=== PATIENT | female | born 1970 | race Caucasian/White ===

== ENCOUNTER → 2019-11-01 08:58 | Outpatient (BNVA) | payer OTHER, SELFPAY | PROVIDERS: Family Provider Nurse Practitioner; Visit Provider Nurse Practitioner | DX: Z12.4 Encounter for screening for malignant neoplasm of cervix (principal); Z00.00 Encounter for general adult medical examination without abnormal findings | CPT/HCPCS: 80053; 80061; 84443 ==

== ENCOUNTER → 2019-11-23 16:24 | Outpatient (BNVA) | payer OTHER, SELFPAY | PROVIDERS: Family Provider Nurse Practitioner; Visit Provider Nurse Practitioner | DX: R05 Cough (principal) | CPT/HCPCS: 71046; 85025; 87400 ==

== ENCOUNTER → 2020-08-29 18:41 | Outpatient (BNVA) | payer OTHER, SELFPAY | PROVIDERS: PCP Nurse Practitioner; Visit Provider Family Medicine | DX: Z20.828 Contact with and (suspected) exposure to other viral communicable diseases (principal) | CPT/HCPCS: 87635 ==

== ENCOUNTER 2020-09-03 09:56 | Outpatient (CLI) | payer OTHER, SELFPAY ==
--- NOTE | 2020-09-03 10:30 | PFTS_ITS ---
Date of Study:09/03/20 Date of Dictation: MECHANICS: Forced vital capacity (FVC) is normal. Forced expiratory volume in one second (FEV1) is normal. FEV1/FVC is normal. FLOW VOLUME LOOP: Mild scooping. LUNG VOLUMES: Total lung capacity (TLC) is normal. Residual volume (RV) is normal. DIFFUSING CAPACITY FOR CARBON MONOXIDE: Normal. INTERPRETATION: The pulmonary function tests are normal. MTDD
--- NOTE | 2020-09-03 13:35 | PFTS_ITS ---
Date of Study:[id number] Date of Dictation: MECHANICS: Forced vital capacity (FVC) is . Forced expiratory volume in one second (FEV1) is . FEV1/FVC is . FLOW VOLUME LOOP: . LUNG VOLUMES: Total lung capacity (TLC) is . Residual volume (RV) is . DIFFUSING CAPACITY FOR CARBON MONOXIDE: . INTERPRETATION: The pulmonary function tests are . mechanics and lung volumes. Gas exchange (DLCO) is . MTDD
== END 2020-09-03 09:57 | disposition home or self-care (01) ==
LOC: RT 10:01
PROVIDERS: PCP Nurse Practitioner; Visit Provider Family Medicine
DX: Z87.09 Personal history of other diseases of the respiratory system (principal)
CPT/HCPCS: 94010; 94726; 94729

== ENCOUNTER 2020-10-08 16:49 | Outpatient (CLI) | payer OTHER, SELFPAY ==
--- NOTE | 2020-10-08 17:02 | XRR_ITS ---
PROCEDURE INFORMATION: Exam: XR Right Shoulder Exam date and time: 10/08/2020 5:03 PM Age: 50 years old Clinical indication: Pain; Shoulder; Right; Additional info: Right shoulder pain shoots to wrist TECHNIQUE: Imaging protocol: XR Right shoulder. Views: 2 or more views. COMPARISON: No relevant prior studies available. FINDINGS: Bones/joints: No acute fracture. No dislocation. Soft tissues: No radiopaque foreign body. XR/XR shoulder RT min 2V* [id number] IMPRESSION: No acute findings.
== END 2020-10-08 16:50 | disposition home or self-care (01) ==
PROVIDERS: PCP Electrodiagnostic Medicine; Visit Provider Electrodiagnostic Medicine
DX: M25.511 Pain in right shoulder (principal)
CPT/HCPCS: 73030

== ENCOUNTER 2020-11-02 07:49 | Outpatient (CLI) | payer OTHER, SELFPAY ==
--- NOTE | 2020-11-02 08:17 | XR_ITS ---
WS: [id number] CHEST 2 VIEWS HISTORY: COUGH, CHRONIC BRONCHITIS COMPARISON: 11/23/2019 Lungs: Linear area of thickening and increased opacification in the RIGHT lower lobe. This may be a d istended bronchus with mucous or focal bronchitis. The remaining lungs are clear. No effusion. Cardiac size: Normal. Mediastinum/Aorta: Normal mediastinum. Bones: Normal. XR/XR chest 2V* [id number] IMPRESSION: 1. Linear area of increasing opacification at the RIGHT lung base. May be an a govind of bronchial distention with mucus impaction. Consider follow-up chest radi ograph after 2-3 weeks to be sure this area resolves. 2. No pneumonia.
== END 2020-11-02 07:50 | disposition home or self-care (01) ==
PROVIDERS: PCP Electrodiagnostic Medicine; Visit Provider Electrodiagnostic Medicine
DX: J42 Unspecified chronic bronchitis (principal); J37.0 Chronic laryngitis; R05 Cough
CPT/HCPCS: 71046

== ENCOUNTER 2020-11-21 12:57 | Outpatient (CLI) | payer OTHER, SELFPAY ==
--- NOTE | 2020-11-21 13:00 | CT_ITS ---
WS: [id number] CT scan of the chest without IV contrast, additional two-dimensional coronal and sagittal reconstruct ion was performed. 11/21/2020 Clinical Data: CHRONIC BRONCHITIS LARYNGITIS, CHRONIC COUGH Comparison: PA and lateral chest, 11/02/2017. DLP: 635.[address] scans at [facility] use at least one of these dose optimization techniques: automat ed exposure control; mA and/or kV adjustment per patient size (includes targeted exams where dose is matched to clinical indication); or iterative reconstruction. Findings: There is a right middle lobe 0.6 cm nodule seen best on image 36 of 59. There is a groundgl ass nodule measuring 0.6 cm seen best on image 30 of 59 in the lateral aspect of the right middle lob e. No masses or effusions are seen. No pneumonia or pneumothorax is present. The heart size is normal with no pericardial effusion. The pulmonary arterial system and thoracic aorta demonstrate no abnorm alities or dilatations. There is no axillary or significant mediastinal adenopathy. The upper abdomen demonstrates no abnormalities. The bones of the thorax are unremarkable. CT/CT chest con [id number] Impression: 1. 2 nodules in the right middle lobe both measuring 0.6 cm. 2. Recommend repeat CT chest in 90 days.
== END 2020-11-21 12:58 | disposition home or self-care (01) ==
LOC: RADWPI 12:58
PROVIDERS: PCP Electrodiagnostic Medicine; Visit Provider Electrodiagnostic Medicine
DX: J42 Unspecified chronic bronchitis (principal); J37.0 Chronic laryngitis; R05 Cough; R91.8 Other nonspecific abnormal finding of lung field
CPT/HCPCS: 71250

== ENCOUNTER → 2023-10-19 08:07 | Outpatient (BNVA) | payer OTHER, SELFPAY | PROVIDERS: PCP Electrodiagnostic Medicine; Referring Provider Electrodiagnostic Medicine; Visit Provider Specialist | DX: M25.561 Pain in right knee (principal); G89.29 Other chronic pain | CPT/HCPCS: 73560; 73565 ==

== ENCOUNTER 2023-11-23 09:24 | Outpatient (CLI) | payer OTHER, SELFPAY ==
--- NOTE | 2023-11-23 09:30 | MR_ITS ---
WS: [id number] MRI RIGHT KNEE HISTORY: knee pain, positive Sariah's test COMPARISON: Radiograph 10/19/2023 Anterior cruciate ligament: Mild increased signal in the distal striations of the ACL. There is no AC L tear identified. Findings are most consistent with mild mucoid degeneration. Posterior cruciate ligament: Intact. Medial collateral ligament: Intact. Posterior lateral corner structures: Intact. Medial menisci: Intrasubstance degeneration of the posterior horn. There is linear increased signal i n the posterior horn which does not definitely extend to an articular surface. There is very slight b lunting and fraying involving the free edge of the posterior horn. Anterior horn is normal. Lateral meniscus: Intact. Normal signal, size and shape. Extensor mechanism: Distal quadriceps tendon and patellar tendons are intact. Fluid and soft tissue: Very small suprapatellar joint effusion. No Jackman's cyst. Osseous and articular structures: Patellofemoral compartment: Normal. Medial compartment: Mild narrowing of the medial compartment. Small marginal osteophytes. Mild diffus e chondromalacia along the weightbearing surface of the femoral condyle and tibial plateau. There is a tiny amount of marrow edema in the femoral condyle and tibial plateau. No fractures. Lateral compartment: No significant joint space narrowing. Mild chondromalacia. No marrow edema. IMPRESSION: 1. No ACL tear. Mild mucoid degeneration in the posterior fiber bundle. 2. Intrasubstance degeneration in the posterior horn medial meniscus and fraying along the articular surfaces. The signal does not extend to the articular surfaces suggesting a full-thickness.. 3. Mild narrowing of the medial compartment with chondromalacia and a very minimal amount of marrow edema. 4. Small suprapatellar joint effusion.
== END 2023-11-23 09:25 | disposition home or self-care (01) ==
LOC: RAD 09:27
PROVIDERS: PCP Electrodiagnostic Medicine; Visit Provider Specialist
DX: M23.321 Other meniscus derangements, posterior horn of medial meniscus, right knee (principal); M25.561 Pain in right knee; M94.261 Chondromalacia, right knee; M25.461 Effusion, right knee
CPT/HCPCS: 73721

== ENCOUNTER → 2024-07-13 16:05 | Outpatient (BNVA) | payer OTHER, SELFPAY | PROVIDERS: PCP Electrodiagnostic Medicine; Visit Provider Specialist | DX: M25.511 Pain in right shoulder (principal); M75.31 Calcific tendinitis of right shoulder | CPT/HCPCS: 73030 ==